=== PATIENT | male | born 1995 | race Two or more races ===

== ENCOUNTER 2024-07-30 18:15 | Inpatient (IN) | payer MEDICAID, OTHER ==
[~2024-07-30] VITALS: Ht 177.8 cm; Wt 90.3 kg
[2024-07-30 19:29] LABS: Basophils # (auto) 0.1 10 ^3/uL (0-0.2); Basophils % (auto) 0.4 % (0.0-2.0); Eosinophils # (auto) 0 10 ^3/uL (0-0.8); Eosinophils % (auto) 0.3 % (0.0-7.0); Hematocrit 46.8 % (41.0-53.0); Hemoglobin 15.8 g/dL (13.5-17.5); Lymphocytes # (auto) 2.2 10 ^3/uL (0.4-5.4); Mean Corpuscular Hemoglobin 28.7 pg (28.0-32.0); Mean Corpuscular Hgb Conc. 33.7 g/dL (32.0-36.0); Monocytes % (auto) 8.7 % (0.0-12.0); Neutrophils # (auto) 8.7 10 ^3/uL (1.6-8.6); Neutrophils % (auto) 72.6 % (37.0-80.0); Platelet Count (auto) 306 10^3/uL (140-450); Red Cell Distribution Width 13.7 % (11.8-14.3)
[2024-07-30 19:39] LABS: Anion Gap 15 (5-15); BUN/Creatinine Ratio 7.6 (10.0-20.0); Blood Urea Nitrogen 10 mg/dL (9-23); Calcium 10.3 mg/dL (8.7-10.4); Carbon Dioxide 22 mmol/L (20-31); Chloride 102 mmol/L (98-107); Sodium 139 mmol/L (136-145); Total Protein 8.2 g/dL (5.7-8.2)
[2024-07-30 19:42] LABS: Alanine Aminotransferase 53 U/L (7-40); Albumin 5.4 g/dL (3.2-4.8); Alkaline Phosphatase 116 U/L (46-116); Aspartate Aminotransferase 80 U/L (13-40); Bilirubin, Total 2.9 mg/dL (0.2-1.0); Glucose 113 mg/dL (74-106); Potassium 3.2 mmol/L (3.5-5.1)
[2024-07-30 19:55] LABS: Creatine Kinase IFCC 2709 U/L (46-171)
--- NOTE | 2024-07-30 20:07 | ED.PDOC ---
Psychiatric HPI Comments HPI: Poor Historian. 20-year-old male brought in by his sister for multiple complaints. According to the sister. Patient has been having some hallucinations with a history of schizophrenia and some suicidal ideation with self cutting with a knife. Patient was in [place] yesterday and she went to pick him up. He was hos pitalized for psychiatric placement proximally two months ago. However when we asked the patient he denies any suicidal ideation or hallucinations. He denies any homicidal ideation. He states he is here for some sore throat. Throat looks fine. Patient states he was running yesterday which sounds somewhat suspicious. He said that he fell and complains of right ribcage pain. When asked he said he did bump his head but denies any headache. Denies any loss of consciousness. Past Medical History: Schizophrenia Past Surgical History: Denies any History of methamphetamine abuse. REVIEW OF SYSTEMS: CONSTITUTIONAL: Denies acute: fever, diaphoresis, chills, generalized weakness. HEAD: Denies acute: headache, photophobia Eyes: Denies acute: Double vision, vision loss, eye pain, eye discharge. EARS: Denies acute: tinnitus, hearing loss, ear discharge, ear pain, THROAT: Denies acute: sore throat, swelling, difficulty swallowing , pain with swallowing, change in voice. NECK: Denies acute: neck pain, neck swelling, stiff neck. HEART: Denies acute : chest pain, palpitations, LUNGS: Denies acute: SOB, wheezing, cough, hemoptysis ABDOMEN: Denies acute: abdominal pain, Nausea, Vomiting, diarrhea, melena , hematemesis, hematochezia SKIN: Denies acute: rash, redness, lesions, itchiness. EXTREMITIES: Denies acute: calf pain, numbness, tingling, weakness, denies pain in extremity. Denies acute: Low back pain. Neuro: Denies acute: focal neurological deficit, motor or sensory focal neurological deficit, tremors, seizure like activity, confusion, dizziness, change in mental status, loss of bowel or bladder function, cauda equina like symptoms. : Denies acute: dysuria, hematuria, flank pain, increase in urinary frequency. PSYCH: Denies acute: Homicidal ideation. PHYSICAL EXAM: General: ----mild----acute distress, awake and alert. Head: normocephalic, atraumatic. Neck: supple, trachea is midline, no swelling. Throat: Normal phonation. No erythema, no exudates, no swelling, no evidence of oral trauma. Eyes:, no erythema, no purulent discharge, no proptosis, no icterus. Heart: regular rate, regular rhythm, no significant murmur appreciated. Lungs: no apparent respiratory distress, Able to speak in full sentences. No wheezing, no rhonchi, no crackles. No stridors Clear to auscultation bilaterally. Abdomen: non tender to palpation, non distended, soft, no guarding, no rebound, + bowel sounds. Left wrist has some minimal swelling with some erythema that. Area is tender to palpation. Patient is neurovascularly intact in the affected extremity. Neuro: Awake, Alert, oriented to name, self, situation, follows commands GCS=15. Speech is normal. Skin: no petechia, no purpura, no cyanosis, non-pale, not jaundice. Lower extremities: --no - Pitting edema no deformity, no focal swelling, no calf TTP. Makes eye contact. moves all four extremities. Face: no apparent facial droop. No CVA tenderness to percussion bilaterally. Ambulating in the ED independently. No nuchal rigidity, Kernig's sign, Brudzinski's sign, no meningeal signs. ED COURSE: Chief Complaint: Hallucinations Time Seen by MD: 18:32 Primary Care Provider: NONE Reviewed Notes: Nurses Notes Information Source: Patient, Relative (Sibling) Mode of Arrival: Ambulatory Was a procedure done? Was a procedure done?: No Psych Differential Dx Suicidal Differential Dx: Alcohol Abuse, Anxiety, Bipolar Disorder, Conversion Disorder, Depression, Homicidal, Laceration, Panic Disorder, Personality Disorder, Schizoprenia, Substance Abuse X-Ray, Labs, Meds, VS Vital Signs Date Time Temp Pulse Resp B/P (MAP) Pulse Ox O2 Delivery O2 Flow Rate FiO2 07/30/24 22:30 98.1 86 14 140/93 (109) 98 98.1 07/30/24 22:30 86 14 98 Room Air* 0 21 07/30/24 18:45 98.8 91 18 147/95 (112) 99 98.8 Lab Test 07/30/24 19:57 07/30/24 19:06 07/30/24 19:02 Range/Units Magnesium Level 2.7 H 1.6-2.6 mg/dL Troponin I High Sensitivity 10 10 </=54 ng/L White Blood Count 12.0 H 4.4-10.8 10^3/uL Red Blood Count 5.50 4.5-5.90 10^6/uL Hemoglobin 15.8 13.5-17.5 g/dL Hematocrit 46.8 41.0-53.0 % Mean Corpuscular Volume 85.0 80.0-100.0 fL Mean Corpuscular Hemoglobin 28.7 28.0-32.0 pg Mean Corpuscular Hemoglobin Concent 33.7 32.0-36.0 g/dL Red Cell Distribution Width 13.7 11.8-14.3 % Platelet Count 306 140-450 10^3/uL Mean Platelet Volume 8.6 6.9-10.8 fL Neutrophils (%) (Auto) 72.6 37.0-80.0 % Lymphocytes (%) (Auto) 18.0 10.0-50.0 % Monocytes (%) (Auto) 8.7 0.0-12.0 % Eosinophils (%) (Auto) 0.3 0.0-7.0 % Basophils (%) (Auto) 0.4 0.0-2.0 % Neutrophils # (Auto) 8.7 H 1.6-8.6 10 ^3/uL Lymphocytes # (Auto) 2.2 0.4-5.4 10 ^3/uL Monocytes # (Auto) 1.0 0-1.3 10 ^3/uL Eosinophils # (Auto) 0 0-0.8 10 ^3/uL Basophils # (Auto) 0.1 0-0.2 10 ^3/uL Nucleated Red Blood Cells 0.0 % Sodium Level 139 136-145 mmol/L Potassium Level 3.2 L 3.5-5.1 mmol/L Chloride Level 102 98-107 mmol/L Carbon Dioxide Level 22 20-31 mmol/L Anion Gap 15 5-15 Blood Urea Nitrogen 10 9-23 mg/dL Creatinine 1.31 H 0.700-1.30 mg/dL Glomerular Filtration Rate Calc 76 >90 mL/min BUN/Creatinine Ratio 7.6 L 10.0-20.0 Serum Glucose 113 H 74-106 mg/dL Lactic Acid Level 1.4 0.4-2.0 mmol/L Calcium Level 10.3 8.7-10.4 mg/dL Total Bilirubin 2.9 H 0.2-1.0 mg/dL Aspartate Amino Transferase (AST) 80 H 13-40 U/L Alanine Aminotransferase (ALT) 53 H 7-40 U/L Alkaline Phosphatase 116 46-116 U/L Creatine Kinase 2709 H 46-171 U/L Total Protein 8.2 5.7-8.2 g/dL Albumin 5.4 H 3.2-4.8 g/dL Plasma/Serum Blood Alcohol < 3.0 <10 mg/dL Urine Color Light-yellow Yellow Urine Clarity Clear Clear Urine pH 5.5 5.0-9.0 Urine Specific [place] 1.008 1.001-1.035 Urine Protein Negative Negative Urine Ketones Negative Negative Urine Blood Negative Negative /uL Urine Nitrite Negative Negative Urine Bilirubin Negative Negative Urine Urobilinogen Normal Negative mg/dL Urine Leukocyte Esterase Negative Negative /uL Urine RBC 1 0 - 3 /hpf Urine Microscopic WBC < 1 0-3 /HPF Urine Squamous Epithelial Cells Few <5 /hpf Urine Bacteria None seen None Seen /hpf Urine Glucose Normal Normal mg/dL Urine Opiates Screen Neg NEGATIVE Urine Fentanyl Screen Neg NEGATIVE Urine Barbiturates Screen Neg NEGATIVE Urine Phencyclidine Screen Neg NEGATIVE Urine Amphetamines Screen Pos NEGATIVE Urine Benzodiazepines Screen Neg NEGATIVE Urine Cocaine Screen Neg NEGATIVE Urine Cannabinoids Screen Neg NEGATIVE Current Medications Medications (Trade) Dose Ordered Sig/Fausto Route Start Time Stop Time Status Last Admin Sodium Chloride 1,000 ml @ 1,000 mls/hr Q1H ONCE IV 07/30/24 19:00 07/30/24 19:59 DC 07/30/24 22:[address] [address] Ph: [phone] DIAGNOSTIC IMAGING Diagnostic Imaging Report : [id number] Signed PATIENT: SOBIA JOSEPH ACCT: [id number] UNIT: [id number] : 1995 LOC: ER ROOM / BED: / AGE / SEX: 29 / M ADM STATUS: REG ER SERVICE 190 ORDERING PHYSICIAN: KATHY FELIX DO PROCEDURE(s): HWOCT - HEAD WITHOUT CONTRAST REASON: fall ORDER NUMBER(s): [id number], ACCESSION NUMBER(s): [id number] CT HEAD WITHOUT CONTRAST Indication: fall EXAM DATE: 07/30/2024 07:28 PM COMPARISON: None TECHNIQUE: CT of the head without intravenous contrast. RADIATION DOSE: CTDIvol: 61 mGy, DLP: 1092 mGy*cm FINDINGS: There is no intracranial hemorrhage. There is no extra-axial fluid, mass, mass effect or midline shift. The ventricles are midline and normal in size. Basilar cisterns are patent. Zamorano-white differentiation is maintained. There is right middle cranial fossa arachnoid cyst. The mastoids are well pneumatized. Bilateral maxillary sinus mucosal tension cysts/thickening. Imaged portion of the orbits are unremarkable. IMPRESSION: 1. No intracranial hemorrhage or mass effect. 2. ATED BY: WING PAEZ MD DICTATED DATE/TIME: 07/30/242006 SIGNED BY: WING PAEZ MD SIGNED DATE/TIME: 07/30/242006 CC: [place] [id number] Ph: [phone] DIAGNOSTIC IMAGING Diagnostic Imaging Report : [id number] Signed PATIENT: SOBIA JOSEPH ACCT: [id number] UNIT: [id number] : 1995 LOC: ER ROOM / BED: / AGE / SEX: 29 / M ADM STATUS: REG ER SERVICE 00 ORDERING PHYSICIAN: KATHY FELIX DO PROCEDURE(s): LWRI - L WRIST 3+ VIEW XRAY REASON: fall ORDER NUMBER(s): [id number], ACCESSION NUMBER(s): [id number] CLINICAL INDICATION: fall TECHNIQUE: XY L WRIST 3+ VIEW XRAY Comparison: None FINDINGS: No osseous or joint abnormality with no fracture or dislocation. Joint spaces are normal. IMPRESSION: No abnormality demonstrated. ATED BY: BLUE JUNIOR MD DICTATED DATE/TIME: 07/30/242030 SIGNED BY: BLUE JUNIOR MD SIGNED DATE/TIME: 07/30/242030 CC: [place] [id number] Ph: [phone] DIAGNOSTIC IMAGING Diagnostic Imaging Report : [id number] Signed PATIENT: SOBIA JOSEPH ACCT: [id number] UNIT: [id number] : 1995 LOC: ER ROOM / BED: / AGE / SEX: 29 / M ADM STATUS: REG ER SERVICE 00 ORDERING PHYSICIAN: KATHY FELIX DO PROCEDURE(s): RRIBS - R RIB XRAY REASON: fall ORDER NUMBER(s): [id number], ACCESSION NUMBER(s): [id number] EXAMINATION: XY R RIB XRAY INDICATION: fall COMPARISON: None TECHNIQUE: Frontal view of the chest and 2 views of the right ribs history FINDINGS: No focal consolidation, pleural effusion or significant pneumothorax. Normal cardiomediastinal silhouette. No displaced right rib fracture. IMPRESSION: 1. No acute cardiopulmonary disease. 2. No displaced right rib fracture. ATED BY: FADY STEVEN MD DICTATED DATE/TIME: 07/30/242008 SIGNED BY: FADY STEVEN MD SIGNED DATE/TIME: 07/30/242008 CC: [place] [id number] Ph: [phone] DIAGNOSTIC IMAGING Diagnostic Imaging Report : [id number] Signed PATIENT: SOBIA JOSEPH ACCT: [id number] UNIT: [id number] : 1995 LOC: ER ROOM / BED: / AGE / SEX: 29 / M ADM STATUS: REG ER SERVICE 00 ORDERING PHYSICIAN: KATHY FELIX DO PROCEDURE(s): RRIBS - R RIB XRAY REASON: fall ORDER NUMBER(s): [id number], ACCESSION NUMBER(s): [id number] EXAMINATION: XY R RIB XRAY INDICATION: fall COMPARISON: None TECHNIQUE: Frontal view of the chest and 2 views of the right ribs history FINDINGS: No focal consolidation, pleural effusion or significant pneumothorax. Normal car diomediastinal silhouette. No displaced right rib fracture. IMPRESSION: 1. No acute cardiopulmonary disease. 2. No displaced right rib fracture. ATED BY: FADY STEVEN MD DICTATED DATE/TIME: 07/30/242008 SIGNED BY: FADY STEVEN MD SIGNED DATE/TIME: 07/30/242008 CC: Time of 1ST Reevaluation: 02:04 Reevaluation 1ST: Improved Patient Education/Counseling: Diagnosis, Treatment Family Education/Counseling: Diagnosis, Treatment Comments Patient presented with the above HPI.---psychiatric symptoms and evaluation of a fall---workup was initiated. patient was found with the above mentioned diagnosis. the following medications were ordered: please refer to order lists of meds and tests obtained by myself Dr. Felix. Patient ED course and VS have been stabilized. Patient has been reassessed in the ED and remained in a stable condition. Pertinent incidental findings were discussed with the patient and/or family. Patient/family voices understanding and is agreeable with plan. Patient has been observed in the ED adequate length of time to insure improvement/stability. Escalation of care considered: Consideration of escalation to observation or admission Social work and tele psych were consulted however they will evaluate the patient when he is on the floor because he is not medically cleared yet. Patient was found in rhabdomyolysis. Fluids was given. Sister was informed of the pain. Patient was ADMITTED to the medicine team for further evaluation and treatment of their presentation. All the reports of any imaging studies that were ordered by myself were reviewed by myself. Departure 1 Departure Time of Disposition: 20:05 Impression: Primary Impression: Rhabdomyolysis Additional Impressions: Suicidal ideation Schizophrenia Methamphetamine abuse Disposition: ADMITTED INPATIENT Admit to: Tele Condition: Guarded Additional Instructions: [place] [id number] Ph: [phone] DIAGNOSTIC IMAGING Diagnostic Imaging Report : [id number] Signed PATIENT: SOBIA JOSEPH ACCT: [id number] UNIT: [id number] : 1995 LOC: ER ROOM / BED: / AGE / SEX: 29 / M ADM STATUS: REG ER SERVICE 00 ORDERING PHYSICIAN: KATHY FELIX DO PROCEDURE(s): HWOCT - HEAD WITHOUT CONTRAST REASON: fall ORDER NUMBER(s): [id number], ACCESSION NUMBER(s): [id number] CT HEAD WITHOUT CONTRAST Indication: fall EXAM DATE: 07/30/2024 07:28 PM COMPARISON: None TECHNIQUE: CT of the head without intravenous contrast. RADIATION DOSE: CTDIvol: 61 mGy, DLP: 1092 mGy*cm FINDINGS: There is no intracranial hemorrhage. There is no extra-axial fluid, mass, mass effect or midline shift. The ventricles are midline and normal in size. Basilar cisterns are patent. Zamorano-white differentiation is maintained. There is right middle cranial fossa arachnoid cyst. The mastoids are well pneumatized. Bilateral maxillary sinus mucosal tension cysts/thickening. Imaged portion of the orbits are unremarkable. IMPRESSION: 1. No intracranial hemorrhage or mass effect. 2. ATED BY: WING PAEZ MD DICTATED DATE/TIME: 07/30/242006 SIGNED BY: WING PAEZ MD SIGNED DATE/TIME: 07/30/242006 CC: [place] [id number] Ph: [phone] DIAGNOSTIC IMAGING Diagnostic Imaging Report : [id number] Signed PATIENT: SOBIA JOSEPH ACCT: [id number] UNIT: [id number] : 1995 LOC: ER ROOM / BED: / AGE / SEX: 29 / M ADM STATUS: REG ER SERVICE 00 ORDERING PHYSICIAN: KATHY FELIX DO PROCEDURE(s): LWRI - L WRIST 3+ VIEW XRAY REASON: fall ORDER NUMBER(s): [id number], ACCESSION NUMBER(s): [id number] CLINICAL INDICATION: fall TECHNIQUE: XY L WRIST 3+ VIEW XRAY Comparison: None FINDINGS: No osseous or joint abnormality with no fracture or dislocation. Joint spaces are normal. IMPRESSION: No abnormality demonstrated. ATED BY: BLUE JUNIOR MD DICTATED DATE/TIME: 07/30/242030 SIGNED BY: BLUE JUNIOR MD SIGNED DATE/TIME: 07/30/242030 CC: [place] [id number] Ph: [phone] DIAGNOSTIC IMAGING Diagnostic Imaging Report : [id number] Signed PATIENT: SOBIA JOSEPH ACCT: [id number] UNIT: [id number] : 1995 LOC: ER ROOM / BED: / AGE / SEX: 29 / M ADM STATUS: REG ER SERVICE 00 ORDERING PHYSICIAN: KATHY FELIX DO PROCEDURE(s): RRIBS - R RIB XRAY REASON: fall ORDER NUMBER(s): [id number], ACCESSION NUMBER(s): [id number] EXAMINATION: XY R RIB XRAY INDICATION: fall COMPARISON: None TECHNIQUE: Frontal view of the chest and 2 views of the right ribs history FINDINGS: No focal consolidation, pleural effusion or significant pneumothorax. Normal cardiomediastinal silhouette. No displaced right rib fracture. IMPRESSION: 1. No acute cardiopulmonary disease. 2. No displaced right rib fracture. ATED BY: FADY STEVEN MD DICTATED DATE/TIME: 07/30/242008 SIGNED BY: FADY STEVEN MD SIGNED DATE/TIME: 07/30/242008 CC: Discharged With: Self Critical Care Note Critical Care Time?: Yes (30 min-critical care time only) Heart Score Heart Score: Heart Score Response (Comments) Value History Slightly Suspicious 0 EKG Normal 0 Age <45 0 Risk Factors No known risk factors 0 Troponin Normal limit 0 Total 0 I personally scribed for KATHY FELIX DO ([email or web address]) on 07/30/24 at 21:51. Electronically submitted by Amy Cornejo ([email or web address]). I personally scribed for KATHY FELIX DO ([email or web address]) on 07/30/24 at 21:52. Electronically submitted by Amy Cornejo ([email or web address]). I personally scribed for KATHY FELIX DO ([email or web address]) on 07/30/24 at 21:53. Electronically submitted by Amy Cornejo ([email or web address]). KATHY FELIX DO Jul 30, 2024 20:07
--- NOTE | 2024-07-30 20:09 | DVH ---
CT HEAD WITHOUT CONTRAST Indication: fall EXAM DATE: 07/30/2024 07:28 PM COMPARISON: None TECHNIQUE: CT of the head without intravenous contrast. RADIATION DOSE: CTDIvol: 61 mGy, DLP: 1092 mGy*cm FINDINGS: There is no intracranial hemorrhage. There is no extra-axial fluid, mass, mass effect or midline shif t. The ventricles are midline and normal in size. Basilar cisterns are patent. Zamorano-white differentia tion is maintained. There is right middle cranial fossa arachnoid cyst. The mastoids are well pneumatized. Bilateral maxillary sinus mucosal tension cysts/thickening. Image d portion of the orbits are unremarkable. IMPRESSION: 1. No intracranial hemorrhage or mass effect. 2.
--- NOTE | 2024-07-30 20:11 | DVH ---
EXAMINATION: XY R RIB XRAY INDICATION: fall COMPARISON: None TECHNIQUE: Frontal view of the chest and 2 views of the right ribs history FINDINGS: No focal consolidation, pleural effusion or significant pneumothorax. Normal cardiomediastinal silhou ette. No displaced right rib fracture. IMPRESSION: 1. No acute cardiopulmonary disease. 2. No displaced right rib fracture.
[2024-07-30] MEDS ORDERED: SODIUM CHLORIDE 0.9% 1,000 ML IV ONE (20:15)
[2024-07-30 20:20] LABS: Urine Bacteria None Seen /hpf (None Seen)
[2024-07-30 20:32] LABS: Urine Blood Negative /uL (Negative); Urine Clarity Clear (Clear); Urine Color Light-Yellow (Yellow); Urine Protein, UAD Negative (Negative); Urine Specific Gravity 1.008 (1.001-1.035); Urine Squamous Epithelial Cell FEW /hpf (<5); Urine Urobilinogen Normal (Negative); Urine WBC < 1 /HPF (0-3); Urine pH 5.5 (5.0-9.0)
--- NOTE | 2024-07-30 20:34 | DVH ---
CLINICAL INDICATION: fall TECHNIQUE: XY L WRIST 3+ VIEW XRAY Comparison: None FINDINGS: No osseous or joint abnormality with no fracture or dislocation. Joint spaces are normal. IMPRESSION: No abnormality demonstrated.
[2024-07-30 21:36] LABS: Amphetamine Screen, Urine Pos (NEGATIVE); Barbiturate Scree,Urine Neg (NEGATIVE); Benzodiazephine Screen, Urine Neg (NEGATIVE); Cannabinoid Screen, Urine Neg (NEGATIVE); Cocaine Screen, Urine Neg (NEGATIVE); Opiate Scree,Urine Neg (NEGATIVE); Phencyclidine Screen, Urine Neg (NEGATIVE)
[2024-07-30 22:30] VITALS: BP 140/93; PULSE 86; RESP 14; TEMP 98.1; O2SAT 98
[2024-07-30] MEDS: SODIUM CHLORIDE 0.9% 1,000 ML IV ONE (22:55)
--- NOTE | 2024-07-30 23:20 | DVHHPRES ---
History of Present Illness Resident Creating Document: FAIZA PEACE RESIDENT History of Present Illness Mr. Faustin is a 29-year-old male with past medical history of schizophrenia not on medications, anxiety who was brought to the ER by her sister with a chief complaint of syncopal event 2 days back, hallucination suicidal ideation for the past 3 days and self-harm and methamphetamine use. Per patient he is on right in a just has some sore throat which has resolved. Patient reports that he had a fall 2 days back and he was knocked out and injured his wrist. He does report using methamphetamine, last use was 1 week back. Per sister in ER, patient was incarcerated last year and [facility], was hospitalized 2 months back at [facility] for hallucinations and schizophrenia. Patient has been having auditory hallucination in which he thinks everybody is telling him to clean himself. Patient has been harming himself with a knife and has cut connolly on the left wrist On arrival patient was 147/95. UDS showed amphetamine use. UA was negative. Patient had mild transaminitis, CK was elevated at 2700. Creatinine elevated at 1.3. Head CT was completed which was unremarkable. Rib x-ray was completed a long with left wrist x-ray which was unremarkable. Past medical history, schizophrenia not on medications, anxiety Social history: Lives with sister, unemployed, denies drinking reports methamphetamine use Patient seen and examined at bedside. Smoke: No ALCOHOL: none Drugs: Other (amphetamine) Lives: with Family Review of Systems Gastrointestinal: Nausea Musculoskeletal: arm pain Allergies: Coded Allergies: NO KNOWN ALLERGIES (Unverified , 07/30/24) Exam Vital Signs Vital Signs Date Time Temp Pulse Resp B/P (MAP) Pulse Ox O2 Delivery O2 Flow Rate FiO2 07/30/24 22:30 98.1 86 14 140/93 (109) 98 98.1 Exam Young male patient sitting in a chair in ER comfortably General: Well-built, afebrile, palor, mucosae are moist Cardiovascular: Regular S1 and S2. No murmurs, gallops or rubs. No JVD elevation. No pedal edema Respiratory: Normal B/L air entry on room air. Clear lung sounds on auscultation Abdomen: Soft, nontender, nondistended, normoactive bowel sounds, no rebound tenderness, no organomegaly, no masses Genitourinary: Deferred MSK/skin: Mobilizes 4 limbs. Skin is dry and warm. Has self-inflicted wound on left wrist, not open or draining Neurological: No motor, no sensitive deficits, normal speech. Pupils are isocoric and reactive. Psych/Mental Status: A/Ox3 Labs/Xrays Labs Test 07/30/24 19:57 07/30/24 19:06 07/30/24 19:02 Range/Units Magnesium Level 2.7 H 1.6-2.6 mg/dL Troponin I High Sensitivity 10 </=54 ng/L White Blood Count 12.0 H 4.4-10.8 10^3/uL Red Blood Count 5.50 4.5-5.90 10^6/uL Hemoglobin 15.8 13.5-17.5 g/dL Hematocrit 46.8 41.0-53.0 % Mean Corpuscular Volume 85.0 80.0-100.0 fL Mean Corpuscular Hemoglobin 28.7 28.0-32.0 pg Mean Corpuscular Hemoglobin Concent 33.7 32.0-36.0 g/dL Red Cell Distribution Width 13.7 11.8-14.3 % Platelet Count 306 140-450 10^3/uL Mean Platelet Volume 8.6 6.9-10.8 fL Neutrophils (%) (Auto) 72.6 37.0-80.0 % Lymphocytes (%) (Auto) 18.0 10.0-50.0 % Monocytes (%) (Auto) 8.7 0.0-12.0 % Eosinophils (%) (Auto) 0.3 0.0-7.0 % Basophils (%) (Auto) 0.4 0.0-2.0 % Neutrophils # (Auto) 8.7 H 1.6-8.6 10 ^3/uL Lymphocytes # (Auto) 2.2 0.4-5.4 10 ^3/uL Monocytes # (Auto) 1.0 0-1.3 10 ^3/uL Eosinophils # (Auto) 0 0-0.8 10 ^3/uL Basophils # (Auto) 0.1 0-0.2 10 ^3/uL Nucleated Red Blood Cells 0.0 % Sodium Level 139 136-145 mmol/L Potassium Level 3.2 L 3.5-5.1 mmol/L Chloride Level 102 98-107 mmol/L Carbon Dioxide Level 22 20-31 mmol/L Anion Gap 15 5-15 Blood Urea Nitrogen 10 9-23 mg/dL Creatinine 1.31 H 0.700-1.30 mg/dL Glomerular Filtration Rate Calc 76 >90 mL/min BUN/Creatinine Ratio 7.6 L 10.0-20.0 Serum Glucose 113 H 74-106 mg/dL Lactic Acid Level 1.4 0.4-2.0 mmol/L Calcium Level 10.3 8.7-10.4 mg/dL Total Bilirubin 2.9 H 0.2-1.0 mg/dL Aspartate Amino Transferase (AST) 80 H 13-40 U/L Alanine Aminotransferase (ALT) 53 H 7-40 U/L Alkaline Phosphatase 116 46-116 U/L Creatine Kinase 2709 H 46-171 U/L Total Protein 8.2 5.7-8.2 g/dL Albumin 5.4 H 3.2-4.8 g/dL Plasma/Serum Blood Alcohol < 3.0 <10 mg/dL Urine Color Light-yellow Yellow Urine Clarity Clear Clear Urine pH 5.5 5.0-9.0 Urine Specific [place] 1.008 1.001-1.035 Urine Protein Negative Negative Urine Ketones Negative Negative Urine Blood Negative Negative /uL Urine Nitrite Negative Negative Urine Bilirubin Negative Negative Urine Urobilinogen Normal Negative mg/dL Urine Leukocyte Esterase Negative Negative /uL Urine RBC 1 0 - 3 /hpf Urine Microscopic WBC < 1 0-3 /HPF Urine Squamous Epithelial Cells Few <5 /hpf Urine Bacteria None seen None Seen /hpf Urine Glucose Normal Normal mg/dL Urine Opiates Screen Neg NEGATIVE Urine Fentanyl Screen Neg NEGATIVE Urine Barbiturates Screen Neg NEGATIVE Urine Phencyclidine Screen Neg NEGATIVE Urine Amphetamines Screen Pos NEGATIVE Urine Benzodiazepines Screen Neg NEGATIVE Urine Cocaine Screen Neg NEGATIVE Urine Cannabinoids Screen Neg NEGATIVE Assessment/Plan Assessment/Plan Hallucinations secondary to ?schizophrenia Self-harm Suicidal ideations Syncope Rhabdomyolysis secondary to fall Transaminitis secondary to fatty liver Hypertension Amphetamine use dependence Hypokalemia Plan: Tele psych eval pending, sitter arranged 1 dose of Ativan 0.5 mg administered IV , Ativan 1 mg p.r.n. IV Syncope-CT head WNL, carotid Doppler and echo pending. EKG pending IV NS administered, follow up with CK level in a.m. Ultrasound liver shows fatty liver Potassium supplemented Plan discussed with patient and sister at the bedside in which all questions have been answered Goals of care discussed for more than 20 minutes, full code status Case discussed with Dr. Banegas Plan discussed with: Patient Date of Service: Jul 30, 2024 Billing Provider: RAFIA BANEGAS MD Common Visit Codes: [id number] INP/OBS CARE (HIGH) FAIZA PEACE RESIDENT Jul 30, 2024 23:20 RAFIA BANEGAS MD Jul 31, 2024 19:00
[2024-07-30] MEDS ORDERED: PANTOPRAZOLE 40 MG/10 ML VIAL INJ IV ONE (23:30)
[2024-07-30] MEDS ORDERED: ACETAMINOPHEN 500 MG TAB or CAP PO PRN (23:30)
[2024-07-31] MEDS ORDERED: SODIUM CHLORIDE 0.9% 1,000 ML IV SCH (00:45)
[2024-07-31] MEDS ORDERED: POTASSIUM CHL 20MEQ/100ML 100 ML IV SCH (00:45)
[2024-07-31] MEDS ORDERED: LORazepam 2MG/ML-1ML VIAL IM ONE (00:45)
[2024-07-31] MEDS ORDERED: LORazepam 2MG/ML-1ML VIAL IV PRN (00:45)
--- NOTE | 2024-07-31 01:24 | DVH ---
INDICATION: Transaminitis TECHNIQUE: Multiple real-time sonographic images of the abdomen were obtained. COMPARISON: None FINDINGS: Liver is mildly enlarged measuring 17.3 cm and demonstrates diffuse increased echogenicity consistent with fatty infiltration. No focal lesions identified in the liver. No evidence of intrahepatic or extrahepatic biliary ductal dilatation. Gallbladder appears unremarkable with no stones or wall thickening. Sonographic Bro's sign was rep ortedly negative. Right kidney measures 11.8 cm and appears unremarkable with no hydronephrosis. Pancreas is obscured by overlying bowel gas. No fluid collection noted. IMPRESSION: No acute abnormality identified. Fatty infiltration of the liver.
--- NOTE | 2024-07-31 01:27 | DVH ---
Carotid Duplex Clinical History: Syncope Comparison: None Technique: Duplex Doppler evaluation of the extracranial carotid and vertebral arteries including color Doppler and spectral/pulsed waveform analysis was performed. Findings: RIGHT SIDE: No atherosclerotic plaque noted. The peak systolic velocities are 96 cm/s in the CCA, 71 cm/s in the ICA. The ICA/CCA ratio is 0.74. The external carotid artery is patent with peak systolic velocity of 105 cm/s proximally. There is appropriate antegrade flow in the right vertebral artery. LEFT SIDE: No atherosclerotic plaque noted. The peak systolic velocities are 116 cm/s in the CCA, 56 cm/s in the ICA. The ICA/CCA ratio is 0.5. The external carotid artery is patent with peak systolic velocity of 85 cm/s proximally. There is appropriate antegrade flow in the left vertebral artery. IMPRESSION: No evidence of hemodynamically significant stenosis in the carotid arteries. Reference: Radiology 2003; 229:340-346 Normal ICA PSV is <125 cm/sec and no plaque or intimal thickening is visible sonographically additional criteria include ICA/CCA PSV ratio <2.0 and ICA EDV <40 cm/sec <50% ICA stenosis ICA PSV is <125 cm/sec and plaque or intimal thickening is visible sonographically additional criteria include ICA/CCA PSV ratio <2.0 and ICA EDV <40 cm/sec 50-69% ICA stenosis ICA PSV is 125-230 cm/sec and plaque is visible sonographically additional criteria include ICA/CCA PSV ratio of 2.0-4.0 and ICA EDV of 40-100 cm/sec 70% ICA stenosis but less than near occlusion ICA PSV is >230 cm/sec and visible plaque and luminal narrowing are seen at ovalle-scale and color Dopp ler ultrasound (the higher the Doppler parameters lie above the threshold of 230 cm/sec, the greater the likelihood of severe disease) additional criteria include ICA/CCA PSV ratio >4 and ICA EDV >100 cm/sec
--- NOTE | 2024-07-31 08:20 | DVHDSRES ---
Discharge Summary Date of Admission Resident Creating Document: FAIZA PEACE RESIDENT Jul 30, 2024 at 23:19 Date of Discharge: Jul 31, 2024 Admitting Diagnosis Hallucination and insomnia Labs/Diagnostic Data: Laboratory Results Test 07/30/24 19:57 07/30/24 19:06 07/30/24 19:02 Magnesium Level 2.7 mg/dL (1.6-2.6) Troponin I High Sensitivity 10 ng/L (</=54) White Blood Count 12.0 10^3/uL (4.4-10.8) Red Blood Count 5.50 10^6/uL (4.5-5.90) Hemoglobin 15.8 g/dL (13.5-17.5) Hematocrit 46.8 % (41.0-53.0) Mean Corpuscular Volume 85.0 fL (80.0-100.0) Mean Corpuscular Hemoglobin 28.7 pg (28.0-32.0) Mean Corpuscular Hemoglobin Concent 33.7 g/dL (32.0-36.0) Red Cell Distribution Width 13.7 % (11.8-14.3) Platelet Count 306 10^3/uL (140-450) Mean Platelet Volume 8.6 fL (6.9-10.8) Neutrophils (%) (Auto) 72.6 % (37.0-80.0) Lymphocytes (%) (Auto) 18.0 % (10.0-50.0) Monocytes (%) (Auto) 8.7 % (0.0-12.0) Eosinophils (%) (Auto) 0.3 % (0.0-7.0) Basophils (%) (Auto) 0.4 % (0.0-2.0) Neutrophils # (Auto) 8.7 10 ^3/uL (1.6-8.6) Lymphocytes # (Auto) 2.2 10 ^3/uL (0.4-5.4) Monocytes # (Auto) 1.0 10 ^3/uL (0-1.3) Eosinophils # (Auto) 0 10 ^3/uL (0-0.8) Basophils # (Auto) 0.1 10 ^3/uL (0-0.2) Nucleated Red Blood Cells 0.0 % Sodium Level 139 mmol/L (136-145) Potassium Level 3.2 mmol/L (3.5-5.1) Chloride Level 102 mmol/L (98-107) Carbon Dioxide Level 22 mmol/L (20-31) Anion Gap 15 (5-15) Blood Urea Nitrogen 10 mg/dL (9-23) Creatinine 1.31 mg/dL (0.700-1.30) Glomerular Filtration Rate Calc 76 mL/min (>90) BUN/Creatinine Ratio 7.6 (10.0-20.0) Serum Glucose 113 mg/dL (74-106) Lactic Acid Level 1.4 mmol/L (0.4-2.0) Calcium Level 10.3 mg/dL (8.7-10.4) Total Bilirubin 2.9 mg/dL (0.2-1.0) Aspartate Amino Transferase (AST) 80 U/L (13-40) Alanine Aminotransferase (ALT) 53 U/L (7-40) Alkaline Phosphatase 116 U/L (46-116) Creatine Kinase 2709 U/L (46-171) Total Protein 8.2 g/dL (5.7-8.2) Albumin 5.4 g/dL (3.2-4.8) Plasma/Serum Blood Alcohol < 3.0 mg/dL (<10) Urine Color Light-yellow (Yellow) Urine Clarity Clear (Clear) Urine pH 5.5 (5.0-9.0) Urine Specific [place] 1.008 (1.001-1.035) Urine Protein Negative (Negative) Urine Ketones Negative (Negative) Urine Blood Negative /uL (Negative) Urine Nitrite Negative (Negative) Urine Bilirubin Negative (Negative) Urine Urobilinogen Normal mg/dL (Negative) Urine Leukocyte Esterase Negative /uL (Negative) Urine RBC 1 /hpf (0 - 3) Urine Microscopic WBC < 1 /HPF (0-3) Urine Squamous Epithelial Cells Few /hpf (<5) Urine Bacteria None seen /hpf (None Seen) Urine Glucose Normal mg/dL (Normal) Urine Opiates Screen Neg (NEGATIVE) Urine Fentanyl Screen Neg (NEGATIVE) Urine Barbiturates Screen Neg (NEGATIVE) Urine Phencyclidine Screen Neg (NEGATIVE) Urine Amphetamines Screen Pos (NEGATIVE) Urine Benzodiazepines Screen Neg (NEGATIVE) Urine Cocaine Screen Neg (NEGATIVE) Urine Cannabinoids Screen Neg (NEGATIVE) Other Laboratory Tests 07/30/24 19:06 Brief Hx & Hospital Course: Mr. Faustin is a 29-year-old male with past medical history of schizophrenia not on medications, anxiety who was brought to the ER by her sister with a chief complaint of syncopal event 2 days back, hallucination suicidal ideation for the past 3 days and self-harm and methamphetamine use. Per patient he is on right in a just has some sore throat which has resolved. Patient reports that he had a fall 2 days back and he was knocked out and injured his wrist. He does report using methamphetamine, last use was 1 week back. Per sister in ER, patient was incarcerated last year and [facility], was hospitalized 2 months back at [facility] for hallucinations and schizophrenia. Patient has been having auditory hallucination in which he thinks everybody is telling him to clean himself. Patient has been harming himself with a knife and has cut connolly on the left wrist On arrival patient was 147/95. UDS showed amphetamine use. UA was negative. Patient had mild transaminitis, CK was elevated at 2700. Creatinine elevated at 1.3. Head CT was completed which was unremarkable. Rib x-ray was completed along with left wrist x-ray which was unremarkable. Past medical history, schizophrenia not on medications, anxiety Social history: Lives with sister, unemployed, denies drinking reports methamphetamine use Patient seen and examined at bedside. Hospital course: Patient was admitted due to suicidal ideation and self-harm. Lab showed raised creatinine kinase, and positive amphetamine on UDS. Patient was given lorazepam, IV normal saline, and potassium for hypokalemia. CT head, rib/wrist x-ray, carotid Doppler and liver ultrasound were normal limits. On 07/31/2024, the patient eloped, the patient was called 3 times, but could not get back respond. Condition at Discharge: Undetermined Final Diagnosis/Problems List Hallucinations secondary to ?schizophrenia ?schizophrenia Self-harm Suicidal ideations Syncope, likely cardiogenic Rhabdomyolysis secondary to fall Transaminitis secondary to fatty liver Hypertension Amphetamine use dependence Hypokalemia Possible PRAVEENA, likey [facility], baseline record not availabe Transaminitis Discharge Disposition: Eloped Discharge Statement: "Patient was advised to return to the ER or call 911 if any headaches, dizziness, shortness of breath, chest pain, abdominal pain, bleeding, fevers, or worsening of medical condition. Patient was counseled about treatment plan, medications, possible side effects, patientverbalized understanding. All questions were answered to the best of my ability. This discharge took greater then 30 minutes in planning, reviewing documentation, counseling the patient, and discussing with other team members." ASSESSMENT ASSESSMENT Assessment Date of Service: Jul 31, 2024 Billing Provider: DINO HEBERT MD Common Visit Codes: 89922-QSM/OBS DISCH DAY >30min GAMAL MIGUEL RESDIENT Jul 31, 2024 08:19 DINO HEBERT MD Aug 06, 2024 01:49
[2024-07-31] MEDS ORDERED: PANTOPRAZOLE 40 MG/10 ML VIAL INJ IV SCH (10:00)
== END 2024-07-31 04:53 | disposition left against medical advice (07) | DRG 351 ==
LOC: ER 18:15 → OVERFLOW 23:19
PROVIDERS: ADMIT Student in an Organized Health Care Education/Training Program; ATTEND Student in an Organized Health Care Education/Training Program
DX: T79.6XXA Traumatic ischemia of muscle, initial encounter (principal); N17.0 Acute kidney failure with tubular necrosis; R45.851 Suicidal ideations; R55 Syncope and collapse; E87.6 Hypokalemia; Z53.29 Procedure and treatment not carried out because of patient's decision for other reasons; F20.9 Schizophrenia, unspecified; I10 Essential (primary) hypertension; R74.01 Elevation of levels of liver transaminase levels; K76.0 Fatty (change of) liver, not elsewhere classified; F15.20 Other stimulant dependence, uncomplicated; Z91.51 Personal history of suicidal behavior; Z79.899 Other long term (current) drug therapy
CPT/HCPCS: 36415; 70450; 71101; 73110; 76705; 80053; 80307; 80320; 81001; 82550; 83605; 83735; 84484; 85025; 93886; 96360; 99291; G0378; J2470; J3480